=== PATIENT | male | born 1960 | race Caucasian/White ===

== ENCOUNTER 2016-05-29 17:49 | Emergency (ER) | payer MEDICAID ==
[~2016-05-29] VITALS: Ht 170.2 cm; Wt 81.8 kg
[2016-05-29 17:56] VITALS: Ht 170.2 cm; Wt 81.8 kg
[2016-05-29] MEDS ORDERED: DIPHTH/TET/ACEL PERTUSS (ADULT) 0.5 ML VIAL IM* ONE (18:30)
--- NOTE | 2016-05-29 18:48 | RADRPT ---
PROCEDURE: CT brain without contrast CLINICAL INDICATION: Fall, head pain TECHNIQUE: CT of the brain without contrast performed on a multidetector CT scanner, with multiplan ar reformats. One or more of the following dose reduction techniques were used: Automated exposure control, adjustment in mA and / or kV according to patient size, use of iterative reconstructive ambrose hnique. CTDIvol = 44 mGy; DLP = 720 mGy-cm. COMPARISON: None available FINDINGS: No acute intracranial hemorrhage is identified. No extra-axial fluid collection is seen. There is no mass effect. No midline shift is identified. Ventricles and sulci are mildly enlarged compatible with volume loss. The density of the brain is unremarkable. Hoff-white differentiation is preserved. Osseous structures are unremarkable. Mastoid air cells and imaged paranasal sinuses grossly clear. IMPRESSION: 1. No evidence of acute intracranial pathology. 2. Mild volume loss. RPTAT: HESO .Mickey Stewart MD, MD Date Time Electronically viewed and signed by .Mickey Stewart MD, on 05/29/2016 18:48 .O/
--- NOTE | 2016-05-29 18:53 | RADRPT ---
PROCEDURE: CT cervical spine without contrast. CLINICAL INDICATION: Fall, neck pain TECHNIQUE: CT of the cervical spine without contrast was performed on a multidetector CT scanner, w ith multiplanar reformats. One or more of the following dose reduction techniques were used: Automa odin exposure control, adjustment in mA and / or kV according to patient size, use of iterative recon structive technique. CTDIvol = 22 mGy and DLP = 445 mGy-cm. COMPARISON: None available. FINDINGS: No fracture or dislocation is identified. There is straightening of the lordosis of the cervical sp ine. There is anterolisthesis of C7 on T1 measuring 3 mm. The vertebral bodies are maintained in h eight. The craniocervical junction is unremarkable. There is anterior spondylosis, with moderate - severe disk space narrowing at C5-6. C2-3: No disk bulge or herniation is seen. There is no central canal stenosis or foraminal narrowin g. C3-4: No disk bulge or herniation is seen. There is mild facet arthropathy. There is no central ca nal stenosis or foraminal narrowing. C4-5: No disk bulge or herniation is seen. There is mild facet arthropathy. There is no central ca nal stenosis or foraminal narrowing. C5-6: There is a broad posterior disk/osteophyte. There is mild central canal stenosis. There are uncovertebral osteophytes and facet arthropathy with mild - moderate right and mild left foraminal n arrowing. C6-7: No disk bulge or herniation is seen. There is no central canal stenosis or foraminal narrowi ng. C7-T1: No disk bulge or herniation is seen. There is facet arthropathy. There is no central canal stenosis or foraminal narrowing. IMPRESSION: 1. Straightening of the cervical lordosis, without fracture/dislocation identified. 2. Cervical spondylosis, most pronounced at C5-6 where there is mild central canal stenosis, mild-m oderate right and mild left foraminal narrowing. 3. Grade 1 anterolisthesis at C7-T1. RPTAT: HESO .Mickey Stewart MD, MD Date Time Electronically viewed and signed by .Mickey Stewart MD, MD on 05/29/2016 18:53 .O/
--- NOTE | 2016-05-29 19:23 | ERD ---
ER Documentation Chief Complaint Date/Time DATE: 05/29/16 TIME: 19:16 Chief Complaint 3cm lac on head HPI This is a [age]-year-old male who presents to the emergency room after falling 5 feet from a ladder and hitting a fence with his head. The patient states that he thinks he could have been knocked out but is not sure. He states that he has a laceration on the left side of his head, denies any pain in his neck or in his face or anywhere else in his body. The patient came to the ER via ambulance for evaluation. ROS All systems reviewed and are negative except as per history of present illness. PMhx/Soc Medical and Surgical Hx: pt denies Medical Hx, pt denies Surgical Hx Hx Alcohol Use: No Hx Substance Use: No Hx Tobacco Use: No Smoking Status: Never smoker Physical Exam Vitals Vital Signs Date Time Temp Pulse Resp B/P Pulse Ox O2 Delivery O2 Flow Rate FiO2 05/29/16 17:56 98.8 110 18 110/60 98 Physical Exam Const: No acute distress, sitting comfortably Head: 4 cm laceration on the left temporal region of the scalp Eyes: Normal Conjunctiva ENT: Normal External Ears, Nose and Mouth. Neck: Full range of motion..~ No meningismus. Resp: Clear to auscultation bilaterally Cardio: Regular rate and rhythm, no murmurs Abd: Soft, non tender, non distended. Normal bowel sounds, no ecchymosis Skin: No petechiae or rashes Back: No midline or flank tenderness Ext: No cyanosis, or edema Neur: Awake and alert Psych: Normal Mood and Affect Results 24 hrs Current Medications Medications (Trade) Dose Ordered Sig/Robert Route PRN Reason Start Time Stop Time Status Last Admin Dose Admin Diphtheria/ Tetanus/Acell Pertussis (Adacel) 0.5 ml ONCE ONCE IM* 05/29/16 18:30 05/29/16 18:31 DC 05/29/16 18:22 Procedures/MDM CT head without: 1. No evidence of acute intracranial pathology. 2. Mild volume loss. CT cervical spine: 1. Straightening of the cervical lordosis, without fracture/ dislocation identified. 2. Cervical spondylosis, most pronounced at C5-6 where there is mild central canal stenosis, mild-moderate right and mild left foraminal narrowing. 3. Grade 1 anterolisthesis at C7-T1. This 46-year-old male presents to the emergency room after falling off of a ladder from 5 feet. The patient did have a laceration on the left side of his head. No other signs of trauma. The patient is alert and oriented to person place and time with no focal neurological deficits. The patient did undergo a CT of the head and cervical spine both of which do not show any fractures or bleeds. The patient is alert oriented has had no change in his mental status since being in the emergency room. He did have a tetanus updated I did staple the laceration closed. He was advised to follow-up in 7 days for staple removal. He is okay the plan of care. Laceration Repair by me: Anesthesia: None Location: Left scalp Tendon/Joint/Nerves: No injury Foreign body: None detected after copious irrigation and exploration Technique: 5 flaquita Complexity: No subcutaneous sutures/mucosal repair/edge excision Post Closure Length: 4cm Patient's bleeding was easily controlled in the department and there is no indication of anemia. No evidence of compartment syndrome, neurologic injury, vascular injury, open joint, tendon laceration, or foreign body. Patient is appropriate for outpatient follow up. 48 hour wound check. Scar minimization instructions given. Departure Diagnosis: Primary Impression: Scalp laceration Additional Impression: Closed head injury Condition: Stable GARFIELD LOCKWOOD DO May 29, 2016 19:23
[2016-05-29 19:41] VITALS: BP 104/64; PULSE 88; RESP 18; TEMP 98.9
== END 2016-05-29 19:42 | disposition home or self-care (01) ==
LOC: E/R 17:49
DX: S01.81XA Laceration without foreign body of other part of head, initial encounter (principal); W11.XXXA Fall on and from ladder, initial encounter; Y92.009 Unspecified place in unspecified non-institutional (private) residence as the place of occurrence of the external cause; Z23 Encounter for immunization
CPT/HCPCS: 12002; 70450; 72125; 90471; 90715; Z7502

== ENCOUNTER 2016-06-06 10:43 | Emergency (ER) | payer MEDICAID ==
[~2016-06-06] VITALS: Ht 177.8 cm; Wt 92.0 kg
[2016-06-06 10:48] VITALS: Ht 177.8 cm; Wt 92.0 kg
--- NOTE | 2016-06-06 13:03 | ERD ---
ER Documentation Chief Complaint Date/Time DATE: 06/06/16 TIME: 13:01 Chief Complaint LEFT TEMPORAL LAC RECHECK HPI This is a 36-year-old male presents to the emergency room for reevaluation of a laceration to the left portion of the scalp. The patient was seen by myself 1 week ago after a fall off a ladder. The patient has had no complications since having his flaquita put in place. The patient came in for routine staple removal. ROS All systems reviewed and are negative except as per history of present illness. PMhx/Soc Hx Alcohol Use: No Hx Substance Use: No Hx Tobacco Use: No Physical Exam Vitals Vital Signs Date Time Temp Pulse Resp B/P Pulse Ox O2 Delivery O2 Flow Rate FiO2 06/06/16 10:48 98.0 77 18 115/73 98 Physical Exam Const: No acute distress Head: [address] in the left temporal scalp, no wound dehiscence Eyes: Normal Conjunctiva ENT: Normal External Ears, Nose and Mouth. Neck: Full range of motion..~ No meningismus. Resp: Clear to auscultation bilaterally Cardio: Regular rate and rhythm, no murmurs Abd: Soft, non tender, non distended. Normal bowel sounds Skin: No petechiae or rashes Back: No midline or flank tenderness Ext: No cyanosis, or edema Neur: Awake and alert Psych: Normal Mood and Affect Procedures/MDM Staple Removal by me: Flaquita removed with staple remover without incident. Wound shows no evidence of infection, foreign body, neurologic injury, vascular injury, open joint or tendon laceration. Patient to follow up PRN. This 46-year-old male presents to the ER for routine reevaluation of a left scalp laceration. The patient did have 5 flaquita placed by myself approximately 8 days ago. The patient's wound looked well-healed, no purulent discharge, no surrounding area of cellulitis. The patient had flaquita removed without difficulty and will be discharged home at this time. Departure Diagnosis: Primary Impression: Encounter for staple removal Additional Impression: Follow-up examination for injury Condition: Stable GARFIELD LOCKWOOD DO Jun 06, 2016 13:03
== END 2016-06-06 13:39 | disposition home or self-care (01) ==
LOC: FTE 10:43
DX: Z48.02 Encounter for removal of sutures (principal); E11.9 Type 2 diabetes mellitus without complications
CPT/HCPCS: 99281

== ENCOUNTER 2016-07-16 00:07 | Emergency (ER) | payer SELFPAY ==
[~2016-07-16] VITALS: Ht 170.2 cm; Wt 88.6 kg
[2016-07-16 00:42] VITALS: Ht 170.2 cm; Wt 88.6 kg
[2016-07-16] MEDS ORDERED: DIPHENHYDRAMINE 50 MG INJ IM ONE (04:30)
[2016-07-16] MEDS ORDERED: HC1C30 TOP (04:34)
[2016-07-16] MEDS ORDERED: BEN50 PO (04:34)
--- NOTE | 2016-07-16 04:43 | ERD ---
ER Documentation Chief Complaint Date/Time DATE: 07/16/16 TIME: 04:40 Chief Complaint RASH AND ITCHING TO GUSTAVO FEET AND HANDS X 2 DAYS. HPI 56-year-old male presents to emergency department for complaints of rash and itching and bilateral hands and bilateral lower legs and plantar aspect of both feet started 2 days ago. Patient did not take any medications up and symptoms. Patient's complaining of itching, moderate in intensity. Patient denies any fever or chills. Patient denies any family members with the same type of rash. Patient has not been shortness of breath or wheezing. Patient does not have any rash in other parts of the body. ROS All systems reviewed and are negative except as per history of present illness. Medications Home Meds Active Scripts Hydrocortisone* Topical (Hydrocortisone* Topical) 1%-28.35 Gm Cream..g., 1 APPLIC TOP Q6 Y for ITCHING, #1 TUB Prov:ARMIDA [employer] 07/16/16 Diphenhydramine Hcl* (Benadryl*) 50 Mg Cap, 50 MG PO Q6H Y for ITCHING/RASH, # 30 CAP Prov:ARMIDA [employer] 07/16/16 Allergies Allergies: Coded Allergies: No Known Allergy (Unverified , 06/06/16) PMhx/Soc Medical and Surgical Hx: pt denies Surgical Hx History of Surgery: No Anesthesia Reaction: No Hx Neurological Disorder: No Hx Respiratory Disorders: No Hx Cardiac Disorders: No Hx Psychiatric Problems: No Hx Miscellaneous Medical Probl: Yes (dm- diet cotrolled) Hx Alcohol Use: No Hx Substance Use: No Hx Tobacco Use: No Smoking Status: Never smoker FmHx Family History: No coronary disease, No diabetes, No other Physical Exam Vitals Vital Signs Date Time Temp Pulse Resp B/P Pulse Ox O2 Delivery O2 Flow Rate FiO2 07/16/16 00:42 97.3 86 20 121/79 98 Physical Exam GENERAL: The patient is well developed and appropriate for usual state of health, in no apparent distress. CHEST: Clear to auscultation bilaterally. There are no rales, wheezes or rhonchi. HEART: Regular rate and rhythm. No murmurs, clicks, rubs or gallops. No S3 or S4. ABDOMEN: Soft, nontender and nondistended. Good bowel sounds. No rebound or guarding. No gross peritonitis. No gross organomegaly or masses. No Morrison sign or McBurney point tenderness. BACK: No midline or flank tenderness. EXTREMITIES: Equal pulses bilaterally. There is no peripheral clubbing, cyanosis or edema. No focal swelling or erythema. Full range of motion. Grossly neurovascularly intact. NEURO: Alert and oriented. Cranial nerves 2-12 intact. Motor strength in all 4 extremities with 5/5 strength. Sensation grossly intact. Normal speech and gait. SKIN: Maculopapular rash noted in the plantar aspect of the foot and palmar aspect both hands, with maceration of the skin and dryness of the skin noted. There is no apparent ecchymosis or petechia. The skin is warm and dry. HEMATOLOGIC AND LYMPHATIC: There is no evidence of excessive bruising or lymphedema. No gross cervical, axillary, or inguinal lymphadenopathy. Results 24 hrs Current Medications Medications (Trade) Dose Ordered Sig/Robert Route PRN Reason Start Time Stop Time Status Last Admin Dose Admin Diphenhydramine HCl (Benadryl) 50 mg ONCE ONCE IM 07/16/16 04:30 07/16/16 04:31 DC 07/16/16 04:24 Benadryl was given emergency department to help with itching. Patient verbalizing much better afterwards. Procedures/MDM Medical decision making: Patient symptoms of rash nonspecific at this time, most likely can be dermatitis, possible contact dermatitis, can be also viral, no suspicion for allergic reaction, urticaria. Nonemergent condition at this time, further evaluation by operations systems specialist may be necessary for further evaluation of symptoms. Patient was given for Benadryl, hydrocortisone 1% cream , is advised to follow-up with primary doctor in 2-3 days for reevaluation of symptoms. Patient was advised to see operations systems specialist for further evaluation if symptoms does not improve. Patient was advised to return to emergency department for worsening symptoms. Departure Diagnosis: Primary Impression: Rash Condition: Stable Patient Instructions: Self-Care for Skin Rashes Referrals: [facility] Usted se gonzalez hecho un examen mdico de control que le indica que no est en sandi condicin que requiera tratamiento urgente en el Departamento de Emergencia. Un estudio ms profundo y el tratamiento de cody condicin pueden esperar sin ningn riesgo hasta que usted sea atendida/o en el consultorio de cody mdico o sandi cl fe. Es responsabilidad suya arreglar sandi jreemy para el seguimiento del vince. MANEJO DE CONDICIONES NO URGENTES EN EL FUTURO 1) Si usted tiene un mdico de atencin primaria: Usted debera llamar a cody mdico de atencin primaria antes de venir al departamento de emergencia. Despus de las horas de consultorio, cody doctor o cody asociado/a est disponible por telfono. El mdico o enfermero de xiomara en el servicio telefnico puede asesorarle por mary medio para atender el problema, o vince contrario se puede programar asndi jeremy. 2) Si usted no tiene un mdico de atencin primaria: Llame al mdico o clnica de referencia que aparece abajo jefry las horas de consultorio para hacer sandi jeremy para que le vean. CLINICAS: [facility] [phone] [facility] [phone] [facility]. [facility] [phone] [address] [facility]. [place] [id number] [phone] [facility] [place] [id number] [phone] [facility]. [phone] [address] [facility]. [facility] () Usted se gonzalez hecho un examen mdico de control que le indica que no est en sandi condicin que requiera tratamiento urgente en el Departamento de Emergencia. Un estudio ms profundo y el tratamiento de cody condicin pueden esperar sin ningn riesgo hasta que usted sea atendida/o en el consultorio de cody mdico o sandi cl fe. Es responsabilidad suya arreglar sandi jeremy para el seguimiento del vince. MANEJO DE CONDICIONES NO URGENTES EN EL FUTURO 1) Si usted tiene un mdico de atencin primaria: Usted debera llamar a cody mdico de atencin primaria antes de venir al departamento de emergencia. Despus de las horas de consultorio, cody doctor o cody asociado/a est disponible por telfono. El mdico o enfermero de xiomara en el servicio telefnico puede asesorarle por mary medio para atender el problema, o vince contrario se puede programar sandi jeremy. 2) Si usted no tiene un mdico de atencin primaria: Llame al mdico o condado institucions de referencia que aparece abajo jefry las horas de consultorio para hacer sandi jeremy para que le vean. SI USTED NO PUEDE PAGAR PARA AMY UN MEDICO puede ir a: [facility] [phone] [place] [address] [facility] [address] [place] [address] [facility] [address] [place] [address] [facility] [address] [place], [place] [id number] CUISIA,ARMIDA Godfrey NP July 16, 2016 04:43
== END 2016-07-16 04:58 | disposition home or self-care (01) ==
LOC: FTE 00:07
DX: R21 Rash and other nonspecific skin eruption (principal); E11.9 Type 2 diabetes mellitus without complications
CPT/HCPCS: 96372; J1200